=== PATIENT | female | born 1985 | race Caucasian/White ===

== ENCOUNTER → 2018-10-17 | Outpatient (CLI) | payer BC ==
--- NOTE | 2018-10-17 10:42 | FL ---
ESOPHOGRAM. HISTORY: Dysphagia Esophagram was performed per the air contrast technique. The patient swallowed barium and effervesce nt crystals without difficulty or delay. Esophageal peristalsis and motility appear to be within normal limits. There is no evidence for filling defect, mass or diverticulum. No hiatal hernia seen. Subsequently single contrast cervical esophagram was performed which fails demonstrate evidence for a spiration penetration or mass. IMPRESSION: Unremarkable study.
== END ==
LOC: RADFLWHC 09:45
PROVIDERS: ATTEND Otolaryngology
DX: R13.10 Dysphagia, unspecified (principal)
CPT/HCPCS: 74220

== ENCOUNTER 2020-09-23 15:41 | Emergency (ER) | payer MEDICAID ==
[2020-09-23 15:49] VITALS: TEMP 97.5
[2020-09-23 16:34] LABS: Basophils # (A) 0.1 k/uL (0-0.2); Basophils % (A) 1 %; Eosinophils # (A) 0.2 k/uL (0-0.7); Eosinophils % (A) 3 %; HCT 37.3 % (34.0-46.0); HGB 13.1 gm/dL (11.4-16.0); Lymphocytes # (A) 2.1 k/uL (1.0-4.8); Lymphocytes % (A) 26 %; MCH 31.3 pg (25.0-35.0); MCHC 35.2 g/dL (31.0-37.0); MCV 88.8 fL (80.0-100.0); Mean Platelet Volume 7.8; Monocytes # (A) 0.4 k/uL (0-1.0); Monocytes % (A) 4 %; Neutrophils # (A) 5.3 k/uL (1.3-7.7); Neutrophils % (A) 65 %; Platelet Count 197 k/uL (150-450); RDW 12.6 % (11.5-15.5); WBC 8.1 k/uL (3.8-10.6)
[2020-09-23 16:43] LABS: Albumin 4.3 g/dL (3.5-5.0); Calcium 9.7 mg/dL (8.4-10.2); Potassium 4.4 mmol/L (3.5-5.1); Total Bilirubin 0.3 mg/dL (0.2-1.3); Total Protein 7.2 g/dL (6.3-8.2)
[2020-09-23] MEDS ORDERED: METOCLOPRAMIDE 5 MG/ML 2 ML VIAL IVP STA (18:26)
[2020-09-23] MEDS ORDERED: SODIUM CHLORIDE 0.9% 1,000 ML IV ONE (18:26)
[2020-09-23] MEDS ORDERED: diphenhydrAMINE 50 MG/ML 1 ML VIAL IVP STA (18:26)
--- NOTE | 2020-09-23 19:33 | CT ---
EXAMINATION TYPE: CT abdomen pelvis w con DATE OF EXAM: 09/23/2020 COMPARISON: 05/03/2010 HISTORY: abdominal pain, nausea, vomiting CT DLP: 1113.8 mGycm Automated exposure control for dose reduction was used. CONTRAST: Performed with IV Contrast, patient injected with 100 mL of Isovue 300. Images obtained from the diaphragm to the floor the pelvis with IV contrast. FINDINGS: Lung bases are clear. There is no pleural effusion. Heart size is normal. There is no pericardial eff usion. Liver spleen stomach pancreas gallbladder appear normal. The bile ducts are not dilated. There is no adrenal mass. There is no evidence of pancreatic mass. Kidneys show satisfactory contrast opacification. There is no hydronephrosis. Delayed images show normal renal excretion. Ureters are n ot dilated. Appendix is inferior and appears normal. Bladder distends smoothly. Uterus is anteverted. There is IUD in the uterine fundus. There is no evidence of a pelvic mass. There is no mesenteric edema. There is no ascites or free air. There is no bowel obstruction. The lumbar vertebra have normal alignment. There is no compression fracture. Posterior elements are i ntact. Disc spaces are normal. Bony pelvis is intact. Hip joints are intact. IMPRESSION: Normal appendix. No demonstrated abnormality of the abdomen pelvis.
--- NOTE | 2020-09-23 20:33 | ED ---
Nausea/Vomiting/Diarrhea HPI - General Chief complaint: Nausea/Vomiting/Diarrhea Stated complaint: Abd Pain Source: patient Mode of arrival: ambulatory Limitations: no limitations - History of Present Illness Initial comments: 35-year-old female past history of hypothyroid, tachycardia, fibromyalgia presents emergency room with reported periumbilical and right lower quadrant ab dominal pain. Patient has had nausea and vomiting that started Saturday pain that started today. She was tested for Covid and it was negative. She went into [facility]. Was given a dose of Zofran. Urinalysis was conducted. Patient was sent into the emergency room for further evaluation. Patient has had previous . Denies any sick contacts with similar symptoms. No concern for . Denies any diarrhea, constipation, black stools or hematochezia. No cough or fevers. Denies dysuria, hematuria or difficulty voiding. No other alleviating, precipitating or modifying factors - Related Data Home Medications Medication Instructions Recorded Confirmed Ascorbic Acid [Vitamin C] 500 mg PO DAILY 09/23/20 09/23/20 Cholecalciferol [Vitamin D3 (25 25 mcg PO DAILY 09/23/20 09/23/20 Mcg = 1000 Iu)] Fenofibrate Nanocrystallized 145 mg PO HS 09/23/20 09/23/20 [Fenofibrate] Levothyroxine Sodium [Synthroid] 100 mcg PO DAILY 09/23/20 09/23/20 Multivitamins, Thera [Multivitamin 1 tab PO DAILY 09/23/20 09/23/20 (formulary)] Altus-3 Fatty Acids [Altus-3] 1,000 mg PO DAILY 09/23/20 09/23/20 Pravastatin Sodium [Pravachol] 40 mg PO HS 09/23/20 09/23/20 Sertraline [Zoloft] 100 mg PO HS 09/23/20 09/23/20 atenoloL [Atenolol] 25 mg PO HS 09/23/20 09/23/20 atenoloL [Atenolol] 50 mg PO DAILY 09/23/20 09/23/20 Previous Rx's Medication Instructions Recorded Metoclopramide [Reglan] 10 mg PO TID PRN #20 tab 09/23/20 Allergies Allergy/AdvReac Type Severity Reaction Status Date / Time Penicillins Allergy Unknown Verified 09/23/20 17:52 Childhood citalopram hydrobromide AdvReac Nausea & Verified 09/23/20 17:52 [From Celexa] Vomiting & Diarrhea duloxetine HCl AdvReac Nausea & Verified 09/23/20 17:52 [From Cymbalta] Vomiting & Diarrhea Review of Systems ROS Statement: Those systems with pertinent positive or pertinent negative responses have been documented in the HPI. ROS Other: All systems not noted in ROS Statement are negative. Past Medical History Past Medical History: Fibromyalgia, Osteoarthritis (OA), Thyroid Disorder Additional Past Medical History / Comment(s): tachycardia, History of Any Multi-Drug Resistant Organisms: None Reported Past Surgical History: Section Additional Past Surgical History / Comment(s): bilat carpal tunnel release, Past Psychological History: ADD/ADHD, Depression Smoking Status: Former smoker Past Alcohol Use History: Rare Past Drug Use History: Marijuana General Exam Limitations: no limitations Course Vital Signs 09/23/20 09/23/20 15:46 20:44 Temperature 97.5 F L Pulse Rate 68 63 Respiratory 18 16 Rate Blood Pressure 130/76 116/75 O2 Sat by Pulse 100 100 Oximetry Medical Decision Making - Medical Decision Making Upon arrival patient was placed into room 30. Thorough history and physical exam was performed. Laboratory studies were conducted. Patient was sent for a CT of her abdomen and pelvis. Patient given a liter bolus of normal saline. CT of the abdomen and pelvis demonstrates no acute process. Results are discussed the patient. Does feel improved at this time. Discussed treatment at home with Grisel[facility] for which the patient did agree to. She is to follow-up with her primary care doctor within 2-4 days. Return to the emergency department for any new or worsening symptoms. I did offer Covid testing however the patient refused. Patient was discharged home in stable condition - Lab Data Result diagrams: 09/23/20 16:15 09/23/20 16:15 Lab Results 09/23/20 09/23/20 Range/Units 16:15 16:15 WBC 8.1 (3.8-10.6) k/uL RBC 4.20 (3.80-5.40) m/uL Hgb 13.1 (11.4-16.0) gm/dL Hct 37.3 (34.0-46.0) % MCV 88.8 (80.0-100.0) fL MCH 31.3 (25.0-35.0) pg MCHC 35.2 (31.0-37.0) g/dL RDW 12.6 (11.5-15.5) % Plt Count 197 (150-450) k/uL MPV 7.8 Neutrophils % 65 % Lymphocytes % 26 % Monocytes % 4 % Eosinophils % 3 % Basophils % 1 % Neutrophils # 5.3 (1.3-7.7) k/uL Lymphocytes # 2.1 (1.0-4.8) k/uL Monocytes # 0.4 (0-1.0) k/uL Eosinophils # 0.2 (0-0.7) k/uL Basophils # 0.1 (0-0.2) k/uL Sodium 140 (137-145) mmol/L Potassium 4.4 (3.5-5.1) mmol/L Chloride 106 (98-107) mmol/L Carbon Dioxide 24 (22-30) mmol/L Anion Gap 10 mmol/L BUN 15 (7-17) mg/dL Creatinine 1.11 H (0.52-1.04) mg/dL Est GFR (CKD-EPI)AfAm 75 (>60 ml/min/1.73 sqM) Est GFR (CKD-EPI)NonAf 65 (>60 ml/min/1.73 sqM) Glucose 97 (74-99) mg/dL Calcium 9.7 (8.4-10.2) mg/dL Total Bilirubin 0.3 (0.2-1.3) mg/dL AST 29 (14-36) U/L ALT 17 (4-34) U/L Alkaline Phosphatase 75 (38-126) U/L Total Protein 7.2 (6.3-8.2) g/dL Albumin 4.3 (3.5-5.0) g/dL Amylase 56 (30-110) U/L Lipase 119 (23-300) U/L Disposition Clinical Impression: Nausea & vomiting Disposition: HOME SELF-CARE Condition: Stable Instructions (If sedation given, give patient instructions): Acute Nausea and Vomiting (ED) Additional Instructions: Please follow up with your doctor in 2-4 days. Return to the ED for any new or worsening symptoms. Prescriptions: Metoclopramide [Reglan] 10 mg PO TID PRN #20 tab PRN Reason: Nausea Is patient prescribed a controlled substance at d/c from ED?: No Referrals: Canelo Gaitan DO [Primary Care Provider] - 1-2 days Time of Disposition: 20:33
[2020-09-23 20:46] VITALS: BP 116/75; PULSE 63; RESP 16
== END 2020-09-23 20:47 | disposition home or self-care (01) ==
LOC: EC 15:41
DX: R11.2 Nausea with vomiting, unspecified (principal); M19.90 Unspecified osteoarthritis, unspecified site; E07.9 Disorder of thyroid, unspecified; F32.9 Major depressive disorder, single episode, unspecified
CPT/HCPCS: 36415; 80053; 82150; 83690; 85025; 74177; 99284; 96374; 96375; 96361; J1200; J2765; Q9967